=== PATIENT | male | born 1985 | race Caucasian/White ===

== ENCOUNTER 2016-12-05 18:29 | Emergency (ER) | payer OTHER ==
[2016-12-05] MEDS ORDERED: PROPARACAINE 0.5% 15 ML OPHT DROP ONE (18:45)
[2016-12-05] MEDS ORDERED: FLUORESCEIN SODIUM 1 MG STRIP OP ONE (18:47)
[2016-12-05] MEDS ORDERED: OFLOXACIN 0.3% SOLN PREPACK OPHT.BTL TAKEHOME ONE (18:54)
[2016-12-05] MEDS ORDERED: KETOROLAC 0.5% 5 ML OPHT.BTL RTEYE ONE (18:54)
--- NOTE | 2016-12-05 18:58 | EDPHY ---
H & P Time Seen by Provider: 12/05/16 18:44 HPI/ROS: CHIEF COMPLAINT: Right eye pain HISTORY OF PRESENT ILLNESS: The patient is a 31-year-old man who got brushed in the face by a pine tree. He is complaining of pain in his right eye. He thinks the needle poked him in the eye. This happened about 5 hours ago. At work. He denies other injuries. REVIEW OF SYSTEMS: Constitutional: denies: chills, fever, recent illness, recent injury EENTM: See HPI Respiratory: denies: cough, shortness of breath Cardiac: denies: chest pain, irregular heart rate, lightheadedness, palpitations Gastrointestinal/Abdominal: denies: abdominal pain, diarrhea, nausea, vomiting, blood streaked stools Genitourinary: denies: dysuria, frequency, hematuria, pain Musculoskeletal: denies: joint pain, muscle pain Skin: denies: lesions, rash, jaundice, bruising Neurological: denies: headache, numbness, paresthesia, tingling, dizziness, weakness Hematologic/Lymphatic: denies: blood clots, easy bleeding, easy bruising Immunologic/allergic: denies: HIV/AIDS, transplant EXAM: GENERAL: Well-appearing, well-nourished and in no acute distress. HEAD: Atraumatic, normocephalic. EYES: Pupils equal round and reactive to light, large corneal abrasion just below the central visual axis. No foreign body appreciated. Says examined with slit lamp and fluorescein. Negative Luz Maria sign. ENT: TMs normal, nares patent, oropharynx clear without exudates. Moist mucous membranes. NECK: Normal range of motion, supple without lymphadenopathy or JVD. LUNGS: Breath sounds clear to auscultation bilaterally and equal. No wheezes rales or rhonchi. HEART: Regular rate and rhythm without murmurs, rubs or gallops. ABDOMEN: Soft, nontender, normoactive bowel sounds. No guarding, no rebound. No masses appreciated. BACK: No CVA tenderness, no spinal tenderness, step-offs or deformities EXTREMITIES: Normal range of motion, no pitting or edema. No clubbing or cyanosis. NEUROLOGICAL: Cranial nerves II through XII grossly intact. Normal speech, normal gait. 5/5 strength, normal movement in all extremities, normal sensation PSYCH: Normal mood, normal affect. SKIN: Warm, dry, normal turgor, no visible rashes or lesions. Source: Patient Exam Limitations: No limitations - Medical/Surgical History Hx Asthma: No Hx Chronic Respiratory Disease: No Hx Diabetes: No Hx Cardiac Disease: No Hx Renal Disease: No Hx Cirrhosis: No Hx Alcoholism: No - Family History Significant Family History: No pertinent family hx - Social History Smoking Status: Former smoker Alcohol Use: Sober Drug Use: None Constitutional: Initial Vital Signs Temperature (C) 36.4 C 12/05/16 18:50 Heart Rate 104 H 12/05/16 18:50 Respiratory Rate 16 12/05/16 18:50 Blood Pressure 143/99 H 12/05/16 18:50 O2 Sat (%) 96 12/05/16 18:50 O2 Delivery Mode Room Air Allergies/Adverse Reactions: Penicillins Allergy (Verified 12/05/16 19:00) Home Medications: Medication Instructions Recorded Ketorolac 0.5% [Acular 0.5% Opht 3 ml OP TID PRN #1 opht.btl 12/05/16 Drops (*)] Medical Decision Making ED Course/Re-evaluation: The patient has a large corneal abrasion. I will treat him with Ocuflox and ketorolac eyedrops. Also Vicodin if needed. 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 He does not wear contacts or glasses. His visual acuity is intact. Differential Diagnosis: Partial list of the Differential diagnosis considered include but were not limited to; corneal abrasion, foreign body and although unlikely based on the history and physical exam, I also considered perforation, ruptured globe, conjunctivitis. I discussed these differential diagnoses and the plan with the patient as well as the usual and expected course. The patient understands that the diagnosis is provisional and that in medicine we are not always correct and that further workup is often warranted. Usual and customary warnings were given. All of the patient's questions were answered. The patient was instructed to return to the emergency department should the symptoms at all worsen or return, otherwise to followup with the physician as we discussed. - Data Points Medications Given: Discontinued Medications Hydrocodone Bitart/Acetaminophen ([place] 5/325mg Prepack#6) 1 btl TAKEHOME EDNOW ONE Stop: 12/05/16 19:16 Last Admin: 12/05/16 19:42 Dose: 1 btl Ofloxacin (Ocuflox 0.3% Opht Drops Prepack) 1 btl TAKEBLANQUITA EDNOW ONE Stop: 12/05/16 18:55 Last Admin: 12/05/16 19:25 Dose: 1 btl Departure - Departure Disposition: Home, Routine, Self-Care Clinical Impression: Corneal abrasion Qualifiers: Encounter type: initial encounter Laterality: right Qualified Code(s): S05.01XA - Injury of conjunctiva and corneal abrasion without foreign body, right eye, initial encounter Condition: Fair Instructions: Corneal Abrasion (ED) Referrals: Omar Del Valle MD [Medical Doctor] - As per Instructions Stand Alone Forms: Work Comp Follow Up, Work Excuse Prescriptions: Ketorolac 0.5% [Acular 0.5% Opht Drops (*)] 3 ml OP TID PRN #1 opht.btl PRN Reason: Pain, Mild
[2016-12-05] MEDS ORDERED: HYDROCOD/APAP 5/325 PREPACK#6 BTL TAKEHOME ONE (19:15)
[2016-12-05 19:49] VITALS: BP 143/99; PULSE 104; RESP 16; TEMP 97.5; O2SAT 96
== END 2016-12-05 19:30 | disposition home or self-care (01) ==
LOC: CED 18:29
DX: S05.01XA Injury of conjunctiva and corneal abrasion without foreign body, right eye, initial encounter (principal)
CPT/HCPCS: G0463-PO

== ENCOUNTER → 2018-09-23 | Outpatient (CLI) | payer MEDICAID | LOC: CIMAGING 09:05 | PROVIDERS: ATTEND Family Medicine | DX: R10.31 Right lower quadrant pain (principal) | CPT/HCPCS: 73502-PO ==